=== PATIENT | female | born 1990 | race American Indian/Alaskan Native ===

== ENCOUNTER 2019-12-18 18:35 | Emergency (ER) | payer MEDICAID, OTHER ==
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
[2019-12-18] MEDS ORDERED: oxyCODONE /ACETAMINOPHEN 5-325MG TAB PO STA (23:40)
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
[2019-12-19 02:59] VITALS: BP 123/78
== END 2019-12-19 04:03 | disposition other institution (70) ==
LOC: ED 18:35
DX: S02.609A Fracture of mandible, unspecified, initial encounter for closed fracture (principal); X58.XXXA Exposure to other specified factors, initial encounter; Y93.89 Activity, other specified; Y92.488 Other paved roadways as the place of occurrence of the external cause; Y99.8 Other external cause status
CPT/HCPCS: 70486